=== PATIENT | male | born 1980 | race Caucasian/White ===

== ENCOUNTER → 2024-11-04 | Outpatient (CLI) | payer OTHER, SELFPAY ==
--- OUTSIDE RECORDS SUMMARY | 2024-11-04 06:59 | XMS RPT_ITS | CCD ---
Author Organization [facility] Care Team Providers Care Handyperson Name Role Phone MARKO MEDINA Referring Unavailable MARKO MEDINA Consulting Unavailable NATHEN CHAUDHRY DO Attending Unavailable RIDNATHEN SILVERMAN DO Primary Care Unavailable RIDDLENATHEN DO Admitting Unavailable PROVIDER, UNKNOWN Consulting Unavailable PROVIDER, UNKNOWN Consulting Unavailable PROVIDER, UNKNOWN Consulting Unavailable Marko Medina MD Unavailable Urologist Provider Unavailable Unavailable Cat SANON, Radha Piña Unavailable Crow ASSOCIATE MANAGER [employer]FFILIATE MARKETING, Libby Unavailable Austen SANON, Jason Dwyer Unavailable King CHANCEC, Nathen Mccollum Unavailable Izabella Dent Unavailable Unavailable Tera SCOTT, Michelle Hutson Unavailable Jolene LAN, Radha Torres Unavailable Unavailab shirley Yang LPN, Jovita Max Unavailable Unavailab shirley Pressley PA-C, Cullen Piña Unavailable Ke SANON, Dr. Blunt Unavailable [phone] Allergies Allergy Classification Reported Allergen(s) Allergy Type Date of Onset Reaction(s) Facility (1 source) Sulfonamides (Antibiotic) Drug allergy (disorder) [facility] Repository (4 sources) Sulfonamides (Antibiotic) [facility] Medications Completed/Discontinued Medications Medication Drug Class(es) Dates Sig (Normalized) Sig (Original) acetaminophen 325 mg / oxyCODONE hydrochloride 5 mg oral tablet (4 sources) Opioid Agonist Start: 12-17-2012 End: 09-10-2013 take 2 tablets by mouth every four to six hours as needed for pain PERCOCET, 5-325MG (Oral Tablet) ; 2 (two) Tablet q4-6hrs, prn severe pain for 0 days Quantity: 20 {Tablet} Refills: 0 Ordered: 10-Sep-2013 Start: 17-Dec-2012 End: 10-Sep-2013 Status: Inactive amoxicillin 500 mg oral capsule (4 sources) Penicillin-class Antibacterial Start: 11-15-2011 End: 07-30-2012 take 1 capsule by mouth three times daily AMOXICILLIN, 500MG (Oral Capsule) ; 1 Capsule tid for 0 days Quantity: 30 {Capsule} Refills: 0 Ordered: 30-Jul-2012 RIKY Maria Start: 15-Nov-2011 End: 30-Jul-2012 Status: Inactive amoxicillin 875 mg / clavulanate 125 mg oral tablet (4 sources) Penicillin-class Antibacterial Start: 10-11-2016 End: 10-21-2016 take 1 tablet by mouth twice daily at mealtime Augmentin 875-125 MG Oral Tablet ; 1 Tab two times daily for 10 days Quantity: 20 {Tablet} Refills: 0 Ordered: 11-Oct-2016 BUFFY Curry Start: 11-Oct-2016 End: 21-Oct-2016 Status: Inactive Comments: Take with food Comment on above: Take with food azithromycin 250 mg oral tablet (4 sources) Macrolide Antimicrobial Start: 06-21-2014 End: 09-03-2014 ZITHROMAX Z-JANNA, 250MG (Oral Tablet) ; 2 (two) Tablet today and then 1 tablet daily x 4 days for 0 days Quantity: 1 {Package} Refills: 0 Ordered: 03-Sep-2014 Start: 21-Jun-2014 End: 03-Sep-2014 Status: Inactive cephalexin 500 mg oral capsule (4 sources) Cephalosporin Antibacterial Start: 08-20-2016 End: 10-11-2016 take 1 capsule by mouth three times daily Cephalexin 500 MG Oral Capsule ; 1 (one) Capsule tid for 0 days Quantity: 30 {Capsule} Refills: 0 Ordered: 11-Oct-2016 PRECIOUS Chapin Start: 20-Aug-2016 End: 11-Oct-2016 Status: Inactive ciprofloxacin 500 mg oral tablet (8 sources) Quinolone Antimicrobial Start: 06-14-2015 End: 03-17-2016 take 1 tablet by mouth twice daily Ciprofloxacin HCl 500 MG Oral Tablet ; 1 (one) Tablet bid for 0 days Quantity: 20 {Tablet} Refills: 0 Ordered: 17-Mar-2016 Start: 14-Jun-2015 End: 17-Mar-2016 Status: Inactive Start: 08-08-2012 End: 08-18-2012 take 1 tablet by mouth twice daily CIPRO, 500MG (Oral Tablet) ; 1 Tablet two times daily for 10 days Quantity: 20 {Tablet} Refills: 0 Ordered: 26-Aug-2012 MD Marko Medina Start: 08-Aug-2012 End: 18-Aug-2012 Status: Inactive ketorolac tromethamine 10 mg oral tablet (4 sources) Nonsteroidal Anti-inflammatory Drug, Cyclooxygenase Inhibitor Start: 12-19-2012 End: 09-10-2013 take 1 tablet by mouth five times daily as needed KETOROLAC TROMETHAMINE, 10MG (Oral Tablet) ; 1 Tablet four times daily as needed for pain for 0 days Quantity: 8 {tablet(s)} Refills: 0 Ordered: 10-Sep-2013 Start: 19-Dec-2012 End: 10-Sep-2013 Status: Inactive Comments: Medication taken as needed. max duration of this med is 5 days (pt had previous rx for 3 days) Comment on above: Medication taken as needed. max duration of this med is 5 days (pt had previous rx for 3 days) sulfamethoxazole 800 mg / trimethoprim 160 mg oral tablet (4 sources) Dihydrofolate Reductase Inhibitor Antibacterial, Sulfonamide Antimicrobial Start: 07-30-2012 End: 08-08-2012 take 1 tablet by mouth twice daily SULFAMETHOXAZOLE- TMP DS, 800-160MG (Oral Tablet) ; 1 Tablet bid for 0 days Quantity: 30 {Tablet} Refills: 0 Ordered: 08-Aug-2012 RIKY Fernández Start: 30-Jul-2012 End: 08-Aug-2012 Status: Inactive Problems Active Problems Problem Classification Problem Date Documented Da te Episodic/Chronic Abdominal hernia (4 sources) Inguinal hernia, without mention of obstruction or gangrene, unilateral or unspecified (not specified as recurrent) 07-30-2012 Episodic Abdominal pain (12 sources) Abdominal pain, unspecified site; Translations: [Abdominal pain] 12-29-2012 Episodic Calculus of urinary tract (8 sources) Calculus of kidney; Translations: [Renal colic] 12-19-2012 Episodic Complications of surgical procedures or medical care (4 sources) Not up to date with immunizations; Translations: [Personal history of underimmunization status] 06-17-2020 Episodic Conditions associated with dizziness or vertigo (4 sources) Constant vertigo; Translations: [Dizziness and giddiness] 09-10-2013 Episodic Genitourinary symptoms and ill-defined conditions (4 sources) Blood in urine; Translations: [Hematuria, unspecified] 12-17-2012 Episodic Inflammatory conditions of male genital organs (4 sources) Acute prostatitis 07-30-2012 Episodic Open wounds of extremities (4 sources) Open wound of foot except toe(s) alone, without mention of complication 11-23-2010 Episodic Other lower respiratory disease (8 sources) Cough; Translations: [Cough] 06-21-2014 Episodic Other nervous system disorders (5 sources) Paresthesia; Translations: [Paresthesia of skin] 10-02-2024 Episodic Other screening for suspected conditions (not mental disorders or infectious disease) (8 sources) Screening status; Translations: [Encounter for screening for diabetes mellitus] 07-30-2012 Episodic Other upper respiratory infections (4 sources) Sinusitis; Translations: [Chronic sinusitis, unspecified] 06-14-2015 Chronic Other upper respiratory infections (12 sources) Acute pharyngitis; Translations: [Acute pharyngitis, unspecified] 08-20-2016 Episodic Otitis media and related conditions (12 sources) Otitis media of right ear; Translations: [Otitis media, unspecified, right ear] 10-11-2016 Episodic Residual codes; unclassified (4 sources) Non-smoker; Translations: [Other specified health status] 06-17-2020 Episodic Superficial injury; contusion (4 sources) Contusion of rib; Translations: [Contusion of left front wall of thorax, initial encounter] 06-17-2020 Episodic Viral infection (4 sources) Unspecified viral infection 06-05-2011 Episodic Past or Other Problems Problem Classification Problem Date Documented Da te Episodic/Chronic Unclassified (4 sources) side pain - Kicked by a cow on 06/06. He was thrown into a gutter and has pain in his left flank/torso. He went to a chriopractor last weekend and was told that it is not rib pain. No imaging done. He continues to have pain and cannot rest. He denies abdominal distention or hematuria. 06-17-2020 Unclassified (4 sources) Cold Symptoms - Symptoms include runny nose, purulent discharge (yellow/green), sore throat (post nasal drainage), hoarseness, productive cough, chills and headache, but do not include nasal congestion, fever or facial pain. The onset was sudden 4 day(s) ago. The symptoms occur constantly. The patient describes this as moderate in severity and worsening. Current treatment includes NSAIDs (last taken at 6:30am this morning), home remedies (vitamin C, echinacea, elderberry juice/extract) and Cold-ez. Risk factors do not include smoking. The patient has been exposed to an individual with an upper respiratory infection (special events driver took patient on a trip last week and was sick this week also). Patient denies history of seasonal allergies, asthma or tonsillectomy. Note for Upper respiratory infection: Reviewed by K. 10-11-2016 Unclassified (4 sources) Cold Symptoms - Symptoms include sore throat, scratchy throat, dry cough, fever (102 at home), chills and headache, but do not include nasal congestion or runny nose. The onset was gradual 2 week(s) ago. The symptoms occur constantly. The patient describes this as moderate in severity and worsening. Current treatment includes acetaminophen. Risk factors do not include child in daycare or smoking. The patient has not been exposed to an individual with a cough, an individual with an upper respiratory infection, an individual with similar symptoms or an individual with strep. Note for Upper respiratory infection: Reviewed by K. 08-20-2016 Unclassified (4 sources) Cold Symptoms - Symptoms include nasal congestion, runny nose, ear pain, sore throat, scratchy throat, dry cough and productive cough, but do not include fever. The onset was gradual 2 week(s) ago. The symptoms occur constantly. The patient describes this as moderate in severity and worsening. Current treatment includes an oral decongestant. Risk factors do not include child in daycare or smoking. The patient has been exposed to an individual with similar symptoms. 03-20-2016 Unclassified (4 sources) Cold Symptoms - Symptoms include runny nose, ear fullness, scratchy throat, dry cough, fever, chills, general malaise and headache, but do not include ear pain. The onset was sudden 6 day(s) ago. The symptoms occur constantly. The patient describes this as moderate in severity and worsening. Current treatment includes acetaminophen and NSAIDs. Risk factors do not include smoking. The patient has been exposed to an individual with similar symptoms (child). 06-14-2015 Unclassified (4 sources) Cold Symptoms - Symptoms include nasal congestion, runny nose (drainage is clear), sore throat, productive cough (only in the morning) and headache, but do not include ear pain or general malaise. The onset was gradual 3 week(s) ago. The symptoms occur constantly. The patient describes this as moderate in severity and unchanged. Current treatment includes non-prescription cold medication (mucinex and nyquil). The patient has been exposed to an individual with similar symptoms. Patient denies history of seasonal allergies, recurrent sinusitis, recurrent strep pharyngitis, asthma, tonsillectomy or recurrent ear infections. Note for Upper respiratory infection: Has had a little diarrhea x weeks. 06-04-2014 Unclassified (4 sources) Follow up consultation - The patient is here to follow-up after hospitalization on : (09/02/13). Note for Consultation follow-up: he states he continues to feel off balance followed by a h/a. He denies chest pain, palpitations, or shortness of breath. CT of brain was negative. He was being treated with meclizine , quit taking this week. 09-10-2013 Unclassified (4 sources) [ADDITIONAL REASON] Transition into care - The patient is transitioning into care from a hospital . 09-10-2013 Unclassified (4 sources) Abdominal pain - The onset of the abdominal pain has been sudden and has been occurring in an intermittent pattern for 6 hours. The pain is described as a moderate colicky pain. The pain is located in the left lower quadrant. The symptoms have been associated with dysuria and hematuria. Note for Abdominal pain: -Pain came suddenly in thenight and woke him up. At times he was rolling on the floor due to pain. It subsides at times. Spoke with RA cinder block mason who recommended ov. 12-17-2012 Unclassified (4 sources) Abdominal pain - The onset of the abdominal pain has been sudden and has been occurring in an intermittent pattern for 2 days. The pain is described as a moderate dull ache. The pain is located in the epigastrium. Note for Abdominal pain: -Recently finished cipro for prostate infection and feels that improved. He has not had any abdominal surgeries. His chiropractor suggested ov. 08-27-2012 Unclassified (4 sources) burning after urination - Intermittent pain and burning after urination. No painful urination and no urinary urgency. He does not notice any external irritation or discharge. He says he knows he does not drink enough water and does consume alot of soda. He wonders if he could be diabetic--he eats alot of sweets and gets hypoglycemic. He reports he had strep throat in July which he cured himself with tea tree oil. 07-30-2012 Unclassified (4 sources) Sore Throat - The onset of the sore throat has been acute and has been occurring for 3 days. The course has been worsening. The sore throat is described as severe. Symptoms include sore throat, fever, headache and ear pain (r), but do not include runny nose, nasal congestion or cough. Relieving factors include NSAIDs. 11-15-2011 Unclassified (4 sources) Cold Symptoms - Symptoms include runny nose, sore throat, dry cough (slight) and fever (low grade yesterday.). The onset was sudden 2 day(s) ago. The patient describes this as mild and improving. Note for Cold Symptoms: Had diarrhea and vomiting. Is doing better today. Concern today is sore throat. reviewed by [facility] 06-05-2011 Unclassified (4 sources) Follow up consultation - The patient is here to follow-up after Emergency Room/Urgent Care on : (11-11-10 stepped on a nina nail on 11-09-10, went to [facility] on 11[facility]11. received rocephin and augmentin 875. redness seems to have improved. pt still painful and limping. inquires if he can return to work. ). 11-23-2010 Unclassified (2 sources) Numbness - The symptoms first began 2 week(s) ago. The onset of the numbness has been gradual. The numbness is improving (initially the numbness was about the whole arm, but currently having numbness of the tips of fingers). The patient describes the numbness as persistent (the numbness is better at the end of the day, numbness is worse when he wakes up in the morning along with sitting down or laying down). The numbess affects the right upper extremity and left upper extremity. Associated features include lightheadedness (has occasionally before noon felt lightheaded, if he eats food and drinks water he will feel better. Patient states that he has episodes of vertigo in the past), but there is no associated chest pain, dizziness or shortness of breath. There are no precipitating factors. Note for Numbness: About 3-4 months ago, he had stinging pain down the lateral side of both legs down to almost his ankle. He went to Chiropractor and started taking prostate supplement. The leg pain did resolve. About 2 1/2 week ago, all of a sudden he had pain again down the lateral side of both legs, along with numbness of the lower legs. He is currently having soreness of the legs and the numbness feeling has resolved. Did notice with the second episode that the pain was worse with laying down or sitting down. The leg pain and numbness improves with standing and be up on his feet.About 1 1/2 weeks ago, he broke out with hives all over his body. He took an Epson Salt bath. The Hives lasted for about 1 1/2 days. 10-02-2024 Results Test Name Value Interpretation Reference Range Facility CBC (INCLUDES DIFF/PLT)on Basophils (Bld) [#/Vol] 0.061 10*3/uL Normal 0-200 [facility] Comment on above: Performed By: #### 5 616, 38762, 6399, 927, 5363 #### [facility] [address] Integrated Marketing Intern: Rubén Longoria MD Basophils/100 WBC (Bld) 1.2 % Normal [facility] Comment on above: Performed By: #### 5 616, 73190, 6399, 927, 5363 #### [facility] [address], [address] [place], [place] [id number] Integrated Marketing Intern: Rubén Longoria MD Eosinophils (Bld) [#/Vol] 0.061 10*3/uL Normal 15-500 [facility] Comment on above: Performed By: #### 5 616, 70700, 6399, 927, 5363 #### [facility] [address], [address] [place] [address] Integrated Marketing Intern: Rubén Longoria MD Eosinophils/100 WBC (Bld) 1.2 % Normal [facility] Comment on above: Performed By: #### 5 616, 35053, 6399, 927, 5363 #### [facility] of [place] [address] Integrated Marketing Intern: Rubén Longoria MD Erythrocyte distribution width (RBC) [Ratio] 12.3 % Normal 11.0-15.0 [facility] Comment on above: Performed By: #### 5 616, 95239, 6399, 927, 5363 #### [facility] [place] [address] Integrated Marketing Intern: Rubén Longoria MD Hematocrit (Bld) [Volume fraction] 38.5 % Normal 38.5-50.0 [facility] Comment on above: Performed By: #### 5 616, 57790, 6398, 927, 5363 #### [facility] [place] [address] Integrated Marketing Intern: Rubén Longoria MD Hemoglobin (Bld) [Mass/Vol] 13.2 g/dL Normal 13.2-17.1 [facility] Comment on above: Performed By: #### 5 616, 85779, 63, 927, 5363 #### [facility] [place] [address] Integrated Marketing Intern: Rubén Longoria MD Lymphocytes (Bld) [#/Vol] 1.683 10*3/uL Normal 850-3900 [facility] Comment on above: Performed By: #### 5 616, 07716, 6399, 927, 5363 #### [facility] [place] [address] Integrated Marketing Intern: Rubén Longoria MD Lymphocytes/100 WBC (Bld) 33.0 % Normal [facility] Comment on above: Performed By: #### 5 616, 23069, 6399, 927, 5363 #### [facility] [place] [address] Integrated Marketing Intern: Rubén Longoria MD MCH (RBC) [Entitic mass] 31.2 pg Normal 27.0-33.0 [facility] Comment on above: Performed By: #### 5 616, 43976, 63, 92, 5363 #### [facility] [place] [address] Integrated Marketing Intern: Rubén Longoria MD MCHC (RBC) [Mass/Vol] 34.3 g/dL Normal 32.0-36.[address] [facility] Comment on above: Result Comment: For adults, a slight decrease in the calculated MCHC value (in the range of 30 to 32 g/dL) is most likely not clinically significant; however, it should be interpreted with caution in correlation with other red cell parameters and the patient's clinical condition. Performed By: #### 5 616, 78640, 6398, , 5363 #### [facility] [place] [address] Integrated Marketing Intern: Rubén Longoria MD MCV (RBC) [Entitic vol] 91.0 fL Normal 80.0-100.0 [facility] Comment on above: Performed By: #### 5 616, 70922, 6398, 92, 5363 #### [facility] [place] [address] Integrated Marketing Intern: Rubén Longoria MD Monocytes (Bld) [#/Vol] 0.439 10*3/uL Normal 200-950 [facility] Comment on above: Performed By: #### 5 616, 59080, 63, 92, 5363 #### [facility] [place] [address] Integrated Marketing Intern: Rubén Longoria MD Monocytes/100 WBC (Bld) 8.6 % Normal [facility] Comment on above: Performed By: #### 5 616, 49114, 6398, 927, 5363 #### [facility] of [address] [place] [address] Integrated Marketing Intern: Rubén Longoria MD Neutrophils (Bld) [#/Vol] 2.856 10*3/uL Normal 5784-0606 [facility] Comment on above: Performed By: #### 5 616, 10990, 6399, 927, 5363 #### [facility] of [address], [address] [place] [address] Integrated Marketing Intern: Rubén Longoria MD Neutrophils/100 WBC (Bld) 56 % Normal [facility] Comment on above: Performed By: #### 5 616, 85513, 6399, 927, 5363 #### [facility] [place] [address] Integrated Marketing Intern: Rubén Longoria MD Platelet mean volume (Bld) [Entitic vol] 10.1 fL Normal 7.5-12.5 [facility] Comment on above: Performed By: #### 5 616, 20993, 6399, 927, 5363 #### [facility] [place] [address] Integrated Marketing Intern: Rubén Longoria MD Platelets (Bld) [#/Vol] 319 10*3/uL Normal 140-400 [facility] Comment on above: Performed By: #### 5 616, 99951, 6399, 927, 5363 #### [facility] [place] [address] Integrated Marketing Intern: Rubén Longoria MD RBC (Bld) [#/Vol] 4.23 10*6/uL Normal 4.20-5.80 [facility] Comment on above: Performed By: #### 5 616, 58865, 6399, 927, 5363 #### [facility] [place] [address] Integrated Marketing Intern: Rubén Longoria MD WBC (Bld) [#/Vol] 5.1 10*3/uL Normal 3.8-10.8 [facility] Comment on above: Performed By: #### 5 616, 11762, 6399, 927, 5363 #### [facility] [place] [address] Integrated Marketing Intern: Rubén Longoria MD [facility] 10-03-2024 Albumin [Mass/Vol] 4.8 g/dL Normal 3.6-5.1 [facility] Comment on above: Performed By: #### 5 616, 86649, 6399, 927, 5363 #### [facility] [place] [address] Integrated Marketing Intern: Rubné Longoria MD Albumin/Globulin [Mass ratio] 1.7 {ratio} Normal 1.0-2.5 [facility] Comment on above: Performed By: #### 5 616, 65175, 6399, 927, 5363 #### [facility] [place] [address] Integrated Marketing Intern: Rubén Longoria MD ALP [Catalytic activity/Vol] 73 U/L Normal 36-130 [facility] Comment on above: Performed By: #### 5 616, 06025, 6399, 927, 5363 #### [facility] [place] [address] Integrated Marketing Intern: Rubén Longoria MD ALT [Catalytic activity/Vol] 34 U/L Normal 9-46 [facility] Comment on above: Performed By: #### 5 616, 15503, 6399, 927, 5363 #### [facility] [place] [address] Integrated Marketing Intern: Rubén Longoria MD AST [Catalytic activity/Vol] 32 U/L Normal 10-40 [facility] Comment on above: Performed By: #### 5 616, 94355, 6399, 927, 5363 #### [facility] [place] [address] Integrated Marketing Intern: Rubén Longoria MD Bilirubin [Mass/Vol] 1.1 mg/dL Normal 0.2-1.2 [facility] Comment on above: Performed By: #### 5 616, 85304, 6399, 927, 5363 #### [facility] of [address], [address] [place] [address] Integrated Marketing Intern: Rubén Longoria MD BUN/CREATININE RATIO SEE NOTE: Normal 6-22 [facility] Comment on above: Result Comment: Not Reported: BUN and Creatinine are within reference range. Performed By: #### 5 616, 36076, 6399, 927, 5363 #### [facility] of [address], [address] [place] [address] Integrated Marketing Intern: Rubén Longoria MD Calcium [Mass/Vol] 9.2 mg/dL Normal 8.6-10.3 [facility] Comment on above: Performed By: #### 5 616, 26648, 63, 927, 5363 #### [facility] of [address], [address] [place] [address] Integrated Marketing Intern: Rubén Longoria MD Chloride [Moles/Vol] 105 mmol/L Normal 98-110 [facility] Comment on above: Performed By: #### 5 616, 16726, 63, 927, 5363 #### [facility] [place] [address] Integrated Marketing Intern: Rubén Longoria MD CO2 [Moles/Vol] 25 mmol/L Normal 20-32 [facility] Comment on above: Performed By: #### 5 616, 99465, 6399, 927, 5363 #### [facility] [place] [address] Integrated Marketing Intern: Rubén Longoria MD Creatinine [Mass/Vol] 0.80 mg/dL Normal 0.60-1.[address] [facility] Comment on above: Performed By: #### 5 616, 41161, 6399, 927, 5363 #### [facility] of [address], [address] [place] [address] Integrated Marketing Intern: Rubén Longoria MD GFR/1.73 sq M.predicted among non-blacks MDRD (S/P/Bld) [Vol rate/Area] 113 mL/min/{1.73_m2} Normal > OR = 60 [facility] Comment on above: Performed By: #### 5 616, 64785, 63, 927, 5363 #### [facility] [place] [address] Integrated Marketing Intern: Rubén Longoria MD Globulin (S) [Mass/Vol] 2.8 g/dL Normal 1.9-3.7 [facility] Comment on above: Performed By: #### 5 616, 23696, 6398, 927, 5363 #### [facility] [place] [address] Integrated Marketing Intern: Rubén Longoria MD Glucose [Mass/Vol] 92 mg/dL Normal 65-99 [facility] Comment on above: Result Comment: Fasting reference interval Performed By: #### 5 616, 55186, 6398, 927, 5363 #### [facility] [place] [address] Integrated Marketing Intern: Rubén Longoria MD Potassium [Moles/Vol] 4.1 mmol/L Normal 3.5-5.3 [facility] Comment on above: Performed By: #### 5 616, 87306, 63, 927, 5363 #### [facility] [place] [address] Integrated Marketing Intern: Rubén Longoria MD Protein [Mass/Vol] 7.6 g/dL Normal 6.1-8.1 [facility] Comment on above: Performed By: #### 5 616, 34518, 6399, 927, 5363 #### [facility] [place] [address] Integrated Marketing Intern: Rubén Longoria MD Sodium [Moles/Vol] 140 mmol/L Normal 135-146 [facility] Comment on above: Performed By: #### 5 616, 52169, 6399, 927, 5363 #### [facility] [place] [address] Integrated Marketing Intern: Rubén Longoria MD Urea nitrogen [Mass/Vol] 19 mg/dL Normal 7-25 [facility] Comment on above: Performed By: #### 5 616, 79760, 63, 927, 5363 #### [facility] [place] [address] Integrated Marketing Intern: Rubén Longoria MD FOLATE, SERUMon 10-03-2024 Folate [Mass/Vol] 11.7 ng/mL Normal [facility] Comment on above: Result Comment: Refe rence Range Low: <3.4 Borderline: 3.4-5.4 Normal: >5.4 Performed By: #### 5 616, 39694, 63, 927, 5363 #### [facility] [place] [address] Integrated Marketing Intern: Rubén Longoria MD IRON, TIBC AND FERRITIN PANE [facility] 10-03-2024 % SATURATION 51 % (calc) High 20-48 [facility] Comment on above: Performed By: #### 5 616, 03874, 6398, 927, 5363 #### [facility] [place] [address] Integrated Marketing Intern: Rubén Longoria MD Ferritin [Mass/Vol] 216 ng/mL Normal 38-380 [facility] Comment on above: Performed By: #### 5 616, 42292, 63, 927, 5363 #### [facility] [place] [address] Integrated Marketing Intern: Rubén oLngoria MD IRON BINDING CAPACITY 290 mcg/dL (calc) Normal 250-425 [facility] Comment on above: Performed By: #### 5 616, 03246, 63, 927, 5363 #### [facility] [place] [address] Integrated Marketing Intern: Rubén Longoria MD IRON, TOTAL 147 mcg/dL Normal 50-180 [facility] Comment on above: Performed By: #### 5 616, 28867, 6399, 927, 5363 #### [facility] [place] [address] Integrated Marketing Intern: Rubén Longoria MD PSA, TOTALon 10-03-2024 PSA, TOTAL 0.57 ng/mL Normal < OR = 4.00 [facility] Comment on above: Result Comment: The total PSA value from this assay system is standardized against the WHO standard. The test result will be approximately 20% lower when compared to the equimolar-standardized total PSA (Stacy Reginald). Comparison of serial PSA results should be interpreted with this fact in mind. This test was performed using the Siemens chemiluminescent method. Values obtained from different assay methods cannot be used interchangeably. PSA levels, regardless of value, should not be interpreted as absolute evidence of the presence or absence of disease. Performed By: #### 5 616, 94426, 6399, 927, 5363 #### [facility] [place] [address] Integrated Marketing Intern: Rubén Longoria MD VITAMIN B12on 10-03-2024 Cobalamin (Vitamin B12) [Mass/Vol] 512 pg/mL Normal 200-1100 [facility] Comment on above: Performed By: #### 5 616, 76474, 6399, 927, 5363 #### [facility] [place] [address] Integrated Marketing Intern: Rubén Longoria MD Laboratory - Chemistry and C hemistry - challengeon 10-02-2024 Albumin [Mass/Vol] 4.8 g/dL Normal 3.6 - 5.1 g/dL [facility], [facility].; [facility], [facility]. Albumin/Globulin [Mass ratio] 1.7 {ratio} Normal 1.0 - 2.5 [facility], [facility].; [facility] ALP [Catalytic activity/Vol] 73 U/L Normal 36 - 130 U/L [facility], [facility].; [facility], [facility]. ALT [Catalytic activity/Vol] 34 U/L Normal 9 - 46 U/L [facility], [facility].; [facility], [facility]. AST [Catalytic activity/Vol] 32 U/L Normal 10 - 40 U/L [facility]; [facility] Bilirubin [Mass/Vol] 1.1 mg/dL Normal 0.2 - 1 .2 mg/dL [facility]; [facility], [facility] Calcium [Mass/Vol] 9.2 mg/dL Normal 8.6 - 10. 3 mg/dL [facility]; [facility], [facility] Chloride [Moles/Vol] 105 mmol/L Normal 98 - 11 0 mmol/L [facility]; [facility], [facility] CO2 [Moles/Vol] 25 mmol/L Normal 20 - 32 mmol/L [facility]; [facility] Cobalamin (Vitamin B12) [Mass/Vol] 512 pg/mL Normal 200 - 1100 pg/mL [facility]; [facility] Creatinine [Mass/Vol] 0.80 mg/dL Normal 0.60 - 1.29 mg/dL [facility]; [facility], [facility] Ferritin [Mass/Vol] 216 ng/mL Normal 38 - 380 ng/mL [facility]; [facility] Folate [Mass/Vol] 11.7 ng/mL Normal [facility]; [facility], [facility] GFR/1.73 sq M.predicted among non-blacks MDRD (S/P/Bld) [Vol rate/Area] 113 mL/min/{1.73_m2} Normal [facility].; [facility], [facility] Glucose [Mass/Vol] 92 mg/dL Normal 65 - 99 mg/dL [facility].; [facility], [facility] Potassium [Moles/Vol] 4.1 mmol/L Normal 3.5 - 5.3 mmol/L [facility].; [facility], [facility] Protein [Mass/Vol] 7.6 g/dL Normal 6.1 - 8.1 g/dL [facility]; [facility], [facility] Sodium [Moles/Vol] 140 mmol/L Normal 135 - 146 mmol/L [facility].; [facility] Urea nitrogen [Mass/Vol] 19 mg/dL Normal 7 - 25 mg/dL [facility].; [facility], [facility] Laboratory - Hematology and Cell countson 10-02-2024 Basophils (Bld) [#/Vol] 0.061 10*3/uL Normal 0 - 200 {cells/uL} [facility].; [facility] Basophils/100 WBC (Bld) 1.2 % Normal [facility]; [facility], [facility] Eosinophils (Bld) [#/Vol] 0.061 10*3/uL Normal 15 - 500 {cells/uL} [facility].; [facility], [facility] Eosinophils/100 WBC (Bld) 1.2 % Normal [facility]; [email or web address], [facility] Erythrocyte distribution width (RBC) [Ratio] 12.3 % Normal 11.0 - 15.0 % [facility].; [email or web address] Hematocrit (Bld) [Volume fraction] 38.5 % Normal 38.5 - 50.0 % [facility]; [facility], [facility] Hemoglobin (Bld) [Mass/Vol] 13.2 g/dL Normal 13.2 - 17.1 g/dL [facility]; [facility], [facility] Lymphocytes (Bld) [#/Vol] 1.683 10*3/uL Normal 850 - 3900 {cells/uL} [facility] Lymphocytes/100 WBC (Bld) 33.0 % Normal [facility]; [email or web address] MCH (RBC) [Entitic mass] 31.2 pg Normal 27.0 - 33.0 pg [facility].; [facility], [facility]. MCHC (RBC) [Mass/Vol] 34.3 g/dL Normal 32.0 - 36.0 g/dL [facility], [facility].; [email or web address], [facility] MCV (RBC) [Entitic vol] 91.0 fL Normal 80.0 - 100.0 fL [facility].; [facility], [facility]. Monocytes (Bld) [#/Vol] 0.439 10*3/uL Normal 200 - 950 {cells/uL} [facility].; [facility], [facility]. Monocytes/100 WBC (Bld) 8.6 % Normal [facility], [facility].; [facility], [facility]. Neutrophils (Bld) [#/Vol] 2.856 10*3/uL Normal 1500 - 7800 {cells/uL} [facility].; [email or web address], [facility]. Neutrophils/100 WBC (Bld) 56 % Normal [facility].; [facility], [facility]. Platelet mean volume (Bld) [Entitic vol] 10.1 fL Normal 7.5 - 12.5 fL [facility], [facility].; [email or web address], [facility]. Platelets (Bld) [#/Vol] 319 10*3/uL Normal 140 - 400 [facility].; [facility], [facility]. RBC (Bld) [#/Vol] 4.23 10*6/uL Normal 4.20 - 5.8 0 {Million/uL} [facility].; [facility], [facility]. WBC (Bld) [#/Vol] 5.1 10*3/uL Normal 3.8 - 10.8 [facility].; [email or web address], [facility]. No Panel Informationon 10-02 % SATURATION 51 {%_(calc)} Abnormal 20 - 48 {%_(calc)} [facility].; [facility], [facility]. BUN/CREATININE RATIO SEE NOTE: Normal 6 - 22 [facility].; [email or web address], [facility]. GLOBULIN 2.8 Normal 1.9 - 3.7 [facility].; [email or web address], [facility]. IRON BINDING CAPACITY 290 Normal 250 - 425 [facility].; [facility] IRON, TOTAL 147 ug/dL Normal 50 - 180 ug/dL [facility], [facility].; [facility], [facility] PSA, TOTAL 0.57 ng/mL Normal [facility].; [facility] CBC + DIFFon 11-19-2022 Baso # 0.00 x10EE3/UL Normal 0.00 - 0.10 [facility] Comment on above: Performed By: #### 2 97616 #### [facility],[address] [place] [address] Basophils/100 WBC (Bld) 0.2 % Normal 0.0 - 2.0 [facility] Comment on above: Performed By: #### 2 10130 #### [facility],[address] [place] [address] CBC + DIFF Normal [facility] Comment on above: Result Comment: CBC- COMPLETE BLOOD COUNT Performed By: #### 2 83917 #### [facility],[address] [place] [address] EO # 0.00 x10EE3/UL Normal 0.00 - 0.50 [facility] Comment on above: Performed By: #### 2 03537 #### [facility],[address] [place], [place] [address] Eosinophils/100 WBC (Bld) 0.1 % Normal 0.0 - 7.0 [facility] Comment on above: Performed By: #### 2 13166 #### [facility],[address] [place] [address] Erythrocyte distribution width (RBC) [Ratio] 13.3 % Normal 12.0 - 15.6 [facility] Comment on above: Performed By: #### 2 74084 #### [facility],[address] [place] [address] Hematocrit (Bld) [Volume fraction] 45.6 % Normal 40.0 - 52.0 [facility] Comment on above: Performed By: #### 2 27934 #### [facility],[address] [place], [place] [address] Hemoglobin (Bld) [Mass/Vol] 15.1 g/dL Normal 13.0 - 17.5 [facility] Comment on above: Performed By: #### 2 43987 #### [facility],[address] [place] [address] Lymph # 1.10 x10EE3/UL Normal 0.80 - 2.80 [facility] Comment on above: Performed By: #### 2 15471 #### [facility],[address] [place] [address] Lymphocytes/100 WBC (Bld) 8.7 % Low 20.0 - 45.0 [facility] Comment on above: Performed By: #### 2 57285 #### [facility],[address] [place], [place] [address] MANUAL DIFF N/A Normal [facility] Comment on above: Performed By: #### 2 78820 #### [facility],[address] [place] [address] MCH (RBC) [Entitic mass] 30 pg Normal 27 - 33 [facility] Comment on above: Performed By: #### 2 00226 #### [facility],[address] [place] [address] MCHC 33 X10 3 Normal 32 - 36 [facility] Comment on above: Performed By: #### 2 41888 #### [facility],[address] [place] [address]55[address] MCV (RBC) [Entitic vol] 91 fL Normal 81 - 98 [facility] Comment on above: Performed By: #### 2 05532 #### [facility],[address] [place] [address] [place] # 0.70 x10EE3/UL Normal 0.20 - 1.00 [facility] Comment on above: Performed By: #### 2 47996 #### [facility],[address] [place] [address] MONOS % 5.4 % Normal 0.0 - 10.0 [facility] Comment on above: Performed By: #### 2 49081 #### [facility],[address] [place] [address] 45163 Morphology Cale (Bld) [Interp] N/A Normal [facility] Comment on above: Performed By: #### 2 76243 #### [facility],[address] [place] [address] 30905 Neut # 10.60 x10EE3/UL High 1.50 - 7.10 [facility] Comment on above: Performed By: #### 2 98081 #### [facility],[address] [place] [address] 71441 Neutrophils/100 WBC (Bld) 85.6 % High 46.0 - 76.0 [facility] Comment on above: Performed By: #### 2 45257 #### [facility],[address] [place] [address] 78595 PLATELET 256 x10EE3/UL Normal 150 - 450 [facility] Comment on above: Performed By: #### 2 50934 #### [facility],[address] [place] [address] 99537 Platelet mean volume (Bld) [Entitic vol] 8.5 fL Normal 6.4 - 10.5 [facility] Comment on above: Result Comment: AUTO MATED DIFFERENTIAL Performed By: #### 2 14322 #### [facility],[address] [place] [address] 96976 RBC 5.02 x 10EE6/UL Normal 4.50 - 6.00 [facility] Comment on above: Performed By: #### 2 76559 #### [facility],[address] [place] [address]732 WBC 12.4 x 10EE3/UL High 4.5 - 10.8 [facility] Comment on above: Performed By: #### 2 86320 #### [facility],[address] [place] [address] 91481 CMP with eGFRon 11-19-2022 AGE 42 years Normal [facility] Comment on above: Performed By: #### 2 24626 #### [facility],[address] [place] [address]253 Albumin [Mass/Vol] 4.5 g/dL Normal 3.4 - 5.0 [facility] Comment on above: Performed By: #### 2 22002 #### [facility],[address] [place] [address] 36427 Albumin/Globulin [Mass ratio] 1.2 {ratio} Normal 0.9 - 1.6 [facility] Comment on above: Performed By: #### 2 47636 #### [facility],[address] [place] [address] 21622 ALK PHOS 78 U/L Normal 46 - 116 [facility] Comment on above: Performed By: #### 2 03358 #### [facility],[address] [place] [address] 02587 ALT [Catalytic activity/Vol] 34 U/L Normal 16 - 63 [facility] Comment on above: Performed By: #### 2 27324 #### [facility],[address] [place] [address] 45483 Anion gap [Moles/Vol] 14 mmol/L Normal 10 - 20 [facility] Comment on above: Performed By: #### 2 73756 #### [facility],[address] [place] [address] 11989 AST [Catalytic activity/Vol] 19 U/L Normal 15 - 37 [facility] Comment on above: Performed By: #### 2 38746 #### [facility],[address] [place] [address] 36345 B/C RATIO 20 ratio Normal 0 - 30 [facility] Comment on above: Performed By: #### 2 04518 #### [facility],[address] [place] [address] 23395 Bilirubin [Mass/Vol] 0.6 mg/dL Normal 0.2 - 1.0 [facility] Comment on above: Performed By: #### 2 24802 #### [facility],[address] [place] [address] 25703 Calcium [Mass/Vol] 8.7 mg/dL Normal 8.5 - 10.1 [facility] Comment on above: Performed By: #### 2 62160 #### [facility],[address] [place] [address] 08562 Chloride [Moles/Vol] 101 mmol/L Normal 98 - 107 [facility] Comment on above: Performed By: #### 2 61943 #### [facility],[address] [place] [address] 91454 CMP with eGFR Normal [facility] Comment on above: Result Comment: COMP REHENSIVE METABOLIC PANEL Performed By: #### 2 90602 #### [facility],[address] [place] [address] 63358 CO2 [Moles/Vol] 29.0 mmol/L Normal 21.0 - 32.0 [facility] Comment on above: Performed By: #### 2 64914 #### [facility],[address] [place] [address] 42327 Creatinine [Mass/Vol] 1.11 mg/dL Normal 0.70 - 1.30 [facility] Comment on above: Performed By: #### 2 79755 #### [facility],[address] [place] [address] 14743 GFR/1.73 sq M.predicted among non-blacks MDRD (S/P/Bld) [Vol rate/Area] mL/min/{1.73_m2} Normal 60 - 999 [facility] Comment on above: Performed By: #### 2 88244 #### [facility],[address] [place] [address] 97056 Result Comment: ACCO RDING TO THE NATIONAL KIDNEY DISEASE EDUCATION PROGRAM(NKDE), A NORMAL eGFR IS A VALUE GREATER THAN OR EQUAL TO 60 ML/MIN/1.73 SQ METERS. CHRONIC KIDNEY DISEASE: <60mL/MIN/1.73 SQ METERS KIDNEY FAILURE: <15mL/MIN/1.73 SQ METERS THIS TEST SHOULD ONLY BE USED FOR PATIENTS 18 YEARS OF AGE AND OLDER. Globulin (S) [Mass/Vol] 3.9 g/dL High 1.5 - 3.8 [facility] Comment on above: Performed By: #### 2 95165 #### [address] [address] Glucose [Mass/Vol] 119 mg/dL High 74 - 106 [facility] Comment on above: Performed By: #### 2 33795 #### [address] [address] Potassium [Moles/Vol] 3.7 mmol/L Normal 3.5 - 5.1 [facility] Comment on above: Performed By: #### 2 87929 #### [address] [address] Protein [Mass/Vol] 8.4 g/dL High 6.4 - 8.2 [facility] Comment on above: Performed By: #### 2 93475 #### [address] [address] Sodium [Moles/Vol] 140 mmol/L Normal 136 - 145 [facility] Comment on above: Performed By: #### 2 03831 #### [address] [address] Urea nitrogen [Mass/Vol] 22 mg/dL High 7 - 18 [facility] Comment on above: Performed By: #### 2 11919 #### [address] [address] [address] ABDOMEN/PELVIS [facility] 2022 CT ABDOMEN/PELVIS [place] [address] Patient: JERZY JONES Phone#: : 1980 Age: 42 Gender: M Pt. Type: ER Account: [id number] Location: 052 Ordering: DR. NATHEN CHAUDHRY Exam Date: 11/19/2022/4:08 Family Phys: MARKO MEDINA Charge Code: [id number] Physician: [place] Order #: [id number] Dose#: [id number] PROCEDURE: CT ABDOMEN/PELVIS WITH CONTRAST COMPARISON: [facility], CT, ABDOMEN/PELVIS W CON, 09/01/2013, 22:07. INDICATIONS: Abdominal pain. TECHNIQUE: After obtaining the patient's consent, CT images were created with non-ionic intravenous contrast material. All CT scans at this facility use dose modulation, iterative reconstruction, and/or weight based dosing when appropriate to reduce radiation dose to as low as reasonably achievable. IV CONTRAST: Omnipaque 350,80ml TOTAL DOSE: 18.80 CTDIvol(mGy) FINDINGS: LIVER: Normal. No enlargement, atrophy, abnormal density, or significant focal lesion. BILIARY: Calculi are present within the gallbladder. There is no evidence of inflammatory changes. There is no evidence of biliary dilatation. PANCREAS: Normal. No lesion, fluid collection, ductal dilatation, or atrophy. SPLEEN: Normal. No enlargement or focal lesion. KIDNEYS: Tiny right renal hypodense foci are present in too small to characterize with certainty.. No mass, obstruction, or calcification. ADRENALS: Normal. No mass or enlargement. AORTA/VASCULAR: Normal. No aneurysm or dissection. RETROPERITONEUM: Normal. No mass or adenopathy. BOWEL/MESENTERY: Small hiatal hernia. No visible mass, obstruction, or bowel wall thickening. ABDOMINAL WALL: There is a small umbilical hernia with fat. URINARY BLADDER: Normal. No visible focal wall thickening, lesion, or calculus. PELVIC NODES: Normal. No adenopathy. PELVIC ORGANS: Normal. No visible mass. Pelvic organs appropriate for patient age. BONES: There is anterior wedging at T12 unchanged from previous exam. LUNG BASES: Normal. No visible pulmonary or pleural disease. OTHER: Negative. Continued Report - Page 2 of 2 Patient: JERZY JONES Phone#: : 1980 Age: 42 Gender: M Pt. Type: ER Account: [id number] Location: 052 Ordering: DR. NATHEN CHAUDHRY Exam Date: 11/19/2022/4:08 Family Phys: MARKO MEDINA Charge Code: [id number] Physician: [place] Order #: [id number] Dose#: [id number] CONCLUSION: 1. Cholelithiasis. 2. There is no evidence acute abdominal or pelvic abnormality. Dictated by: Clemencia Perry MD on 11/19/2022 at 9:37 Approved by: Clemencia Perry MD on 11/19/2022 at 9:49 Normal [facility] CULTURE BLOOD [LESLIE]on Microscopic examination of blood, culture CULTURE BLOOD [LESLIE] _BLOOD CULTURE_ GO TO [facility] REPORTS AND ATTACHMENTS FOR SCANNED REPORT 11/26/22.1143.DNP.CO MPLETE Normal [facility] Comment on above: Performed By: #### 2 94144 #### [facility],[address] [place] [address] Microscopic examination of blood, culture CULTURE BLOOD [LESLIE] _BLOOD CULTURE_ [facility] FOR SCANNED REPORT 11/26/22.1142.DNP.CO MPLETE Normal [facility] Comment on above: Performed By: #### 2 94145 #### [facility],[address] [place] [address]500 LACTATEon 11-19-2022 Lactate [Moles/Vol] 1.1 mmol/L Normal 0.4 - 2.0 [facility] Comment on above: Performed By: #### 2 24382 #### [facility],[address] [place] [address]654 LIPASEon 11-19-2022 Lipase [Catalytic activity/Vol] 52.0 U/L Low 73.0 - 393 [facility] Comment on above: Performed By: #### 2 33408 #### [facility],[address] [place] [address]35 Laboratory - Hematology and Cell countson 06-17-2020 Basophils (Bld) [#/Vol] 0.02 10*3/uL Normal 0 - 200 {cells/uL} [facility] Basophils/100 WBC (Bld) 0.3 % Normal [facility].; [facility] Eosinophils (Bld) [#/Vol] 0.053 10*3/uL Normal 15 - 500 {cells/uL} [facility].; [facility] Eosinophils/100 WBC (Bld) 0.8 % Normal [facility].; [facility] Erythrocyte distribution width (RBC) [Ratio] 12.4 % Normal 11.0 - 15.0 % [facility].; [facility], [facility] Hematocrit (Bld) [Volume fraction] 45.0 % Normal 38.5 - 50.0 % [facility], [facility].; [facility], [facility] Hemoglobin (Bld) [Mass/Vol] 15.1 g/dL Normal 13.2 - 17.1 g/dL [facility].; [facility] Lymphocytes (Bld) [#/Vol] 1.789 10*3/uL Normal 850 - 3900 {cells/uL} [facility].; [facility] Lymphocytes/100 WBC (Bld) 27.1 % Normal [facility]; [facility], [facility]. MCH (RBC) [Entitic mass] 30.1 pg Normal 27.0 - 33.0 pg [facility].; [facility], [facility]. MCHC (RBC) [Mass/Vol] 33.6 g/dL Normal 32.0 - 36.0 g/dL [facility].; [facility], [facility]. MCV (RBC) [Entitic vol] 89.8 fL Normal 80.0 - 100.0 fL [facility].; [facility], [facility]. Monocytes (Bld) [#/Vol] 0.554 10*3/uL Normal 200 - 950 {cells/uL} [facility] [facility]. Monocytes/100 WBC (Bld) 8.4 % Normal [facility]. Neutrophils (Bld) [#/Vol] 4.184 10*3/uL Normal 1500 - 7800 {cells/uL} [facility].; [facility]. Neutrophils/100 WBC (Bld) 63.4 % Normal [facility].; [facility]. Platelet mean volume (Bld) [Entitic vol] 10.8 fL Normal 7.5 - 12.5 fL [facility].; [place] [email or web address] Platelets (Bld) [#/Vol] 293 10*3/uL Normal 140 - 400 [facility]; [facility]. RBC (Bld) [#/Vol] 5.01 10*6/uL Normal 4.20 - 5.8 0 {Million/uL} [facility].; [facility], [facility]. WBC (Bld) [#/Vol] 6.6 10*3/uL Normal 3.8 - 10.8 [facility].; [place] [employer]. Laboratory - Microbiology an d Antimicrobial susceptibilityon 08-20-2016 S. pyogenes Ag EIA Ql (Throat) Negative Normal [facility]; [facility] Laboratory - Chemistry and C hemistry - challengeon 09-10-2013 Free T3 [Mass/Vol] 3.2 pg/mL Normal 2.3 - 4.2 pg/mL [facility].; [facility]. Free T4 [Mass/Vol] 1.0 ng/dL Normal 0.8 - 1.8 ng/dL [facility].; [email or web address] [email or web address], [facility]. TSH Qn 2.37 m[IU]/L Normal 0.40 - 4.50 {mIU/L} [facility].; [email or web address] [email or web address], [facility]. Laboratory - Chemistry and C hemistry - challengeon 12-17-2012 Bilirubin Ql (U) Negative Normal [facility].; [place] [email or web address], [employer] Ketones Ql (U) Negative Normal [facility].; [place] [employer]. pH (U) 5.5 [pH] Normal [facility] [employer]. Specific gravity (U) [Rel density] 1.010 Normal [facility] [employer]. Laboratory - Hematology and Cell countson 12-17-2012 Hemoglobin Ql (U) large Abnormal [facility] [employer].; [employer]. Laboratory - Specimen inform ationon 12-17-2012 Appearance (U) clear Normal [facility].; [employer]. Color (U) dark Yellow Normal [employer].; [employer]. Laboratory - Urinalysison Glucose Test strip (U) [Mass/Vol] Negative Normal [facility] [employer].; [employer]. Leukocyte esterase Test strip Ql (U) Negative Normal [facility].; [employer], [employer]. Nitrite Ql (U) Negative Normal [facility].; [employer]. Protein Ql (U) Negative Normal [facility].; [employer]. No Panel Informationon 12-17 UA - UROBILINOGEN 0.2 mg/dL Normal [facility] [employer].; [employer]. Laboratory - Chemistry and C hemistry - challengeon 08-27-2012 Bilirubin Ql (U) Negative Normal [facility].; [employer]. Ketones Ql (U) Negative Normal [facility].; [employer]. pH (U) 7.0 [pH] Normal 4.6 - 8.0 [employer].; [employer]. Specific gravity (U) [Rel density] 1.010 Normal 1.001 - 1.025 [employer].; [employer]. Laboratory - Hematology and Cell countson 08-27-2012 Hemoglobin Ql (U) Negative Normal [employer].; [employer]. Laboratory - Specimen inform ationon 08-27-2012 Appearance (U) Clear Normal [facility].; [employer]. Color (U) yellow Normal [employer].; [employer]. Laboratory - Urinalysison Glucose Test strip (U) [Mass/Vol] Negative Normal [facility].; [employer]. Leukocyte esterase Test strip Ql (U) Negative Normal [facility].; [facility], [employer]. Nitrite Ql (U) Negative Normal [facility].; [employer]. Protein Ql (U) Negative Normal [facility].; [employer]. No Panel Informationon 08-27 UA - UROBILINOGEN 0.2 mg/dL Normal [place] [employer].; [employer]. Laboratory - Chemistry and C hemistry - challengeon 07-30-2012 Bilirubin Ql (U) Negative Normal [facility].; [employer]. Glucose Glucometer (BldC) [Moles/Vol] 83 Normal 60 - 120 [facility].; [employer]. Ketones Ql (U) Negative Normal [facility].; [employer]. pH (U) 7.0 [pH] Normal 4.6 - 8.0 [place] [employer].; [employer]. Specific gravity (U) [Rel density] 1.010 Normal 1.001 - 1.025 [facility].; [employer]. Laboratory - Hematology and Cell countson 07-30-2012 Hemoglobin Ql (U) trace, non-hemolyzed Abnormal [facility].; [employer]. Laboratory - Specimen inform ationon 07-30-2012 Appearance (U) clear Normal [facility].; [employer]. Color (U) yellow Normal [place] [employer].; [employer]. Laboratory - Urinalysison Glucose Test strip (U) [Mass/Vol] Negative Normal [place] [employer].; [facility], [employer]. Leukocyte esterase Test strip Ql (U) Negative Normal [facility].; [employer]. Nitrite Ql (U) Negative Normal [facility].; [employer]. Protein Ql (U) Negative Normal [facility]; [facility] No Panel Informationon 07-30 UA - UROBILINOGEN 0.2 mg/dL Normal [facility]; [facility] Laboratory - Microbiology an d Antimicrobial susceptibilityon 11-15-2011 S. pyogenes Ag EIA Ql (Throat) Positive Abnormal [facility]; [facility] Vital Signs Date Time Vital Sign Value Performing Clinician Facility 10-02-2024 08:12-0400 Body height 175.26 cm Arelis Chapin RN [facility].; [facility] 10-02-2024 08:12-0400 Body mass index (BMI) [Ratio] 29.68 kg/m2 Arelis Chapin RN [facility].; [facility] 10-02-2024 08:12-0400 Body surface area Derived from formula 2.07 m2 Arelis Chapin RN [facility].; [place] [email or web address]. 10-02-2024 08:12-0400 Body temperature 98.3 [degF] Arelis Chapin RN [facility].; [place] [email or web address]. Comment on above: Method: Tympanic 10-02-2024 08:12-0400 Body weight 91.17 kg Arelis Chapin RN [facility].; [facility] 10-02-2024 08:12-0400 Diastolic blood pressure 69 mm[Hg] Arelis Chapin RN [facility].; [email or web address]. Comment on above: Patient Position: Sitting; Cuff Location : Left Arm; Cuff Size: Standard 10-02-2024 08:12-0400 Heart rate 70 /min Arelis Chapin RN [facility].; [employer]. Comment on above: Pattern: Regular 10-02-2024 08:12-0400 Systolic blood pressure 113 mm[Hg] Arelis Chapin RN [facility].; [facility]. Comment on above: Patient Position: Sitting; Cuff Location : Left Arm; Cuff Size: Standard 06-17-2020 14:54-0500 Body height 177.8 cm Libby Maria ASSOCIATE MANAGER AFFILIATE MARKETING Work Phone: [facility] [employer].; [employer]. 06-17-2020 14:54-0500 Body mass index (BMI) [Ratio] 28.98 kg/m2 Libby Crow ASSOCIATE MANAGER AFFILIATE MARKETING Work Phone: [employer].; [employer]. 06-17-2020 14:54-0500 Body surface area Derived from formula 2.1 m2 Libby Crow ASSOCIATE MANAGER AFFILIATE MARKETING Work Phone: [employer].; [employer]. 06-17-2020 14:54-0500 Body weight 91.63 kg Libby Crow ASSOCIATE MANAGER AFFILIATE MARKETING Work Phone: [employer].; [employer]. 06-17-2020 14:54-0500 Diastolic blood pressure 87 mm[Hg] Libby Crow ASSOCIATE MANAGER AFFILIATE MARKETING Work Phone: [employer].; [employer]. Comment on above: Patient Position: Sitting; Cuff Location : Left Arm; Cuff Size: Standard 06-17-2020 14:54-0500 Heart rate 102 /min Libby Crow ASSOCIATE MANAGER AFFILIATE MARKETING Work Phone: [employer].; [employer]. Comment on above: Pattern: Regular 06-17-2020 14:54-0500 Systolic blood pressure 122 mm[Hg] Libby Crow ASSOCIATE MANAGER AFFILIATE MARKETING Work Phone: [employer].; [employer]. Comment on above: Patient Position: Sitting; Cuff Location : Left Arm; Cuff Size: Standard 10-11-2016 11:19-0400 Body height 177.8 cm Arelis Chapin RN [employer].; [employer]. 10-11-2016 11:19-0400 Body mass index (BMI) [Ratio] 29.99 kg/m2 Arelis Chapin RN [employer].; [employer]. 10-11-2016 11:19-0400 Body surface area Derived from formula 2.13 m2 Arelis Chapin RN [facility].; [employer]. 10-11-2016 11:19-0400 Body temperature 99.1 [degF] Arelis Chapin RN [employer].; [employer]. Comment on above: Method: Tympanic 10-11-2016 11:19-0400 Body weight 94.8 kg Arelis Chapin RN [employer].; [employer]. 10-11-2016 11:19-0400 Diastolic blood pressure 81 mm[Hg] Arelis Chapin RN [employer].; [employer]. Comment on above: Patient Position: Sitting; Cuff Location : Left Arm; Cuff Size: Large 10-11-2016 11:19-0400 Heart rate 87 /min Arelis Chapin RN [employer].; [employer]. Comment on above: Pattern: Regular 10-11-2016 11:19-0400 Inhaled oxygen concentration 20 % Marko Medina MD Work Phone: [employer].; [employer]. Comment on above: Room air 10-11-2016 11:19-0400 Inhaled oxygen concentration 21 % Arelis Chapin RN [employer].; [employer]. Comment on above: Room air 10-11-2016 11:19-0400 SaO2% (BldA) [Mass fraction] 96 % Arelis Chapin RN [employer].; [employer]. 10-11-2016 11:19-0400 Systolic blood pressure 123 mm[Hg] Arelis Chapin RN [employer].; [employer]. Comment on above: Patient Position: Sitting; Cuff Location : Left Arm; Cuff Size: Large 08-20-2016 07:59-0400 Body height 177.8 cm Marko Medina MD Work Phone: [employer]; [employer] 08-20-2016 07:59-0400 Body mass index (BMI) [Ratio] 29.41 kg/m2 Marko Medina MD Work Phone: [employer]; [employer]. 08-20-2016 07:59-0400 Body surface area Derived from formula 2.11 m2 Marko Medina MD Work Phone: [employer]; [employer]. 08-20-2016 07:59-0400 Body temperature 99.4 [degF] Marko Medina MD Work Phone: [employer].; [employer]. 08-20-2016 07:59-0400 Body weight 92.99 kg Marko Medina MD Work Phone: [employer].; [employer]. 08-20-2016 07:59-0400 Diastolic blood pressure 93 mm[Hg] Marko Medina MD Work Phone: [employer]; [employer]. Comment on above: Patient Position: Sitting; Cuff Location : Left Arm; Cuff Size: Standard 08-20-2016 07:59-0400 Heart rate 105 /min Marko Medina MD Work Phone: [employer]; [employer]. Comment on above: Pattern: Regular 08-20-2016 07:59-0400 Systolic blood pressure 138 mm[Hg] Marko Medina MD Work Phone: [employer]; [employer] Comment on above: Patient Position: Sitting; Cuff Location : Left Arm; Cuff Size: Standard 03-17-2016 09:55-0400 Body height 177.8 cm Marko Medina MD Work Phone: [employer]; [employer]. 03-17-2016 09:55-0400 Body mass index (BMI) [Ratio] 29.84 kg/m2 Marko Medina MD Work Phone: [employer].; [employer]. 03-17-2016 09:55-0400 Body surface area Derived from formula 2.12 m2 Marko Medina MD Work Phone: [employer].; [employer]. 03-17-2016 09:55-0400 Body weight 94.35 kg Marko Medina MD Work Phone: [employer].; [employer]. 03-17-2016 09:55-0400 Diastolic blood pressure 92 mm[Hg] Marko Medina MD Work Phone: [employer]; [employer]. Comment on above: Patient Position: Sitting; Cuff Location : Left Arm; Cuff Size: Standard 03-17-2016 09:55-0400 Heart rate 77 /min Marko Medina MD Work Phone: [employer]; [employer]. Comment on above: Pattern: Regular 03-17-2016 09:55-0400 Systolic blood pressure 143 mm[Hg] Marko Medina MD Work Phone: [employer]; [employer]. Comment on above: Patient Position: Sitting; Cuff Location : Left Arm; Cuff Size: Standard 06-13-2015 13:46-0500 Body height 177.8 cm [employer] Work Phone: [employer]; [employer]. 06-13-2015 13:46-0500 Body mass index (BMI) [Ratio] 29.27 kg/m2 [employer] ASSOCIATE MANAGER AFFILIATE MARKETING Work Phone: [employer]; [employer]. 06-13-2015 13:46-0500 Body surface area Derived from formula 2.11 m2 [employer] ASSOCIATE MANAGER AFFILIATE MARKETING Work Phone: [employer].; [employer]. 06-13-2015 13:46-0500 Body temperature 99.4 [degF] [employer] ASSOCIATE MANAGER AFFILIATE MARKETING Work Phone: [employer].; [employer]. Comment on above: Method: Tympanic 06-13-2015 13:46-0500 Body weight 92.53 kg Libby Walshy ASSOCIATE MANAGER AFFILIATE MARKETING Work Phone: [employer].; [employer]. 06-13-2015 13:46-0500 Diastolic blood pressure 90 mm[Hg] Libby Crow ASSOCIATE MANAGER AFFILIATE MARKETING Work Phone: [employer].; [employer]. Comment on above: Patient Position: Sitting; Cuff Location : Left Arm; Cuff Size: Large 06-13-2015 13:46-0500 Heart rate 88 /min Libby Crow ASSOCIATE MANAGER AFFILIATE MARKETING Work Phone: [employer].; [employer]. Comment on above: Pattern: Regular 06-13-2015 13:46-0500 Inhaled oxygen concentration 20 % Libby Crow ASSOCIATE MANAGER AFFILIATE MARKETING Work Phone: [employer].; [employer]. Comment on above: Room air 06-13-2015 13:46-0500 Inhaled oxygen concentration 21 % Libby Crow ASSOCIATE MANAGER AFFILIATE MARKETING Work Phone: [employer]; [employer]. Comment on above: Room air 06-13-2015 13:46-0500 SaO2% (BldA) [Mass fraction] 98 % Libby Crow ASSOCIATE MANAGER AFFILIATE MARKETING Work Phone: [employer]; [employer]. 06-13-2015 13:46-0500 Systolic blood pressure 143 mm[Hg] Libby Crow ASSOCIATE MANAGER AFFILIATE MARKETING Work Phone: [employer]; [employer]. Comment on above: Patient Position: Sitting; Cuff Location : Left Arm; Cuff Size: Large 06-04-2014 09:04-0500 Body height 177.8 cm Marko Medina MD Work Phone: [employer]; [employer]. 06-04-2014 09:04-0500 Body mass index (BMI) [Ratio] 29.13 kg/m2 Marko Medina MD Work Phone: [employer]; [employer]. 06-04-2014 09:04-0500 Body surface area Derived from formula 2.1 m2 Marko Medina MD Work Phone: [employer]; [employer] 06-04-2014 09:04-0500 Body temperature 98.2 [degF] Marko Medina MD Work Phone: [employer]; [employer] Comment on above: Method: Tympanic 06-04-2014 09:04-0500 Body weight 92.08 kg Marko Medina MD Work Phone: [employer]; [employer] 06-04-2014 09:04-0500 Diastolic blood pressure 82 mm[Hg] Marko Medina MD Work Phone: [employer]; [employer]. Comment on above: Patient Position: Sitting; Cuff Location : Left Arm; Cuff Size: Standard 06-04-2014 09:04-0500 Heart rate 74 /min Marko Medina MD Work Phone: [employer]; [employer]. Comment on above: Pattern: Regular 06-04-2014 09:04-0500 Inhaled oxygen concentration 20 % Marko Medina MD Work Phone: [employer]; [employer] Comment on above: Room air 06-04-2014 09:04-0500 Inhaled oxygen concentration 21 % Marko Medina MD Work Phone: [employer]; [employer] Comment on above: Room air 06-04-2014 09:04-0500 SaO2% (BldA) [Mass fraction] 97 % Marko Medina MD Work Phone: [employer]; [employer] 06-04-2014 09:04-0500 Systolic blood pressure 124 mm[Hg] Marko Medina MD Work Phone: [facility].; [employer]. Comment on above: Patient Position: Sitting; Cuff Location : Left Arm; Cuff Size: Standard 09-10-2013 14:45-0400 Body weight 86.18 kg Marko Medina MD Work Phone: [facility] [facility].; [employer]. 09-10-2013 14:45-0400 Diastolic blood pressure 89 mm[Hg] Marko Medina MD Work Phone: [employer].; [employer]. Comment on above: Patient Position: Sitting; Cuff Location : Left Arm; Cuff Size: Standard 09-10-2013 14:45-0400 Heart rate 84 /min Marko Medina MD Work Phone: [employer].; [employer]. Comment on above: Pattern: Regular 09-10-2013 14:45-0400 Systolic blood pressure 152 mm[Hg] Marko Medina MD Work Phone: [employer].; [employer]. Comment on above: Patient Position: Sitting; Cuff Location : Left Arm; Cuff Size: Standard 12-17-2012 11:24-0400 Body height 177.8 cm [facility] Work Phone: [employer].; [employer]. 12-17-2012 11:24-0400 Body mass index (BMI) [Ratio] 26.69 kg/m2 [facility] Work Phone: [employer].; [employer]. 12-17-2012 11:24-0400 Body surface area Derived from formula 2.02 m2 [facility] Work Phone: [employer].; [employer]. 12-17-2012 11:24-0400 Body temperature 98.5 [degF] [facility] Work Phone: [employer].; [employer]. Comment on above: Method: Tympanic 12-17-2012 11:24-0400 Body weight 84.37 kg Libby Maria LPN Work Phone: [employer].; [employer]. 12-17-2012 11:24-0400 Diastolic blood pressure 100 mm[Hg] Libby Maria LPN Work Phone: [employer]; [employer]. Comment on above: Patient Position: Sitting; Cuff Location : Right Arm; Cuff Size: Standard 12-17-2012 11:24-0400 Heart rate 90 /min Libby Maria LPN Work Phone: [employer]; [employer]. Comment on above: Pattern: Regular 12-17-2012 11:24-0400 Systolic blood pressure 153 mm[Hg] Libby Maria LPN Work Phone: [employer]; [employer]. Comment on above: Patient Position: Sitting; Cuff Location : Right Arm; Cuff Size: Standard 08-27-2012 11:41-0400 Body height 177.8 cm Libby Maria LPN Work Phone: [employer]; [employer]. 08-27-2012 11:41-0400 Body mass index (BMI) [Ratio] 26.54 kg/m2 Libby Maria LPN Work Phone: [employer].; [employer]. 08-27-2012 11:41-0400 Body surface area Derived from formula 2.02 m2 iLbby Walshy ASSOCIATE MANAGER AFFILIATE MARKETING Work Phone: [employer].; [employer]. 08-27-2012 11:41-0400 Body temperature 99.3 [degF] Libby Walshy ASSOCIATE MANAGER AFFILIATE MARKETING Work Phone: [employer].; [employer]. Comment on above: Method: Tympanic 08-27-2012 11:41-0400 Body weight 83.92 kg Libby Crow ASSOCIATE MANAGER AFFILIATE MARKETING Work Phone: [employer].; [employer]. 08-27-2012 11:41-0400 Diastolic blood pressure 91 mm[Hg] Libby Maria LPN Work Phone: [employer].; [employer]. Comment on above: Patient Position: Sitting; Cuff Location : Left Arm; Cuff Size: Large 08-27-2012 11:41-0400 Heart rate 85 /min Libby Maria LPN Work Phone: [employer].; [employer]. Comment on above: Pattern: Regular 08-27-2012 11:41-0400 Systolic blood pressure 141 mm[Hg] Libby Maria LPN Work Phone: [employer].; [employer]. Comment on above: Patient Position: Sitting; Cuff Location : Left Arm; Cuff Size: Large 07-30-2012 11:55-0500 Body height 177.8 cm Libby Maria LPN Work Phone: [employer].; [employer]. 07-30-2012 11:55-0500 Body mass index (BMI) [Ratio] 26.4 kg/m2 Libby Maria LPN Work Phone: [employer].; [employer]. 07-30-2012 11:55-0500 Body surface area Derived from formula 2.01 m2 Libby Maria LPN Work Phone: [employer].; [employer]. 07-30-2012 11:55-0500 Body weight 83.46 kg Libby Maria LPN Work Phone: [employer].; [employer]. 07-30-2012 11:55-0500 Diastolic blood pressure 87 mm[Hg] Libby Maria LPN Work Phone: [employer].; [employer]. Comment on above: Patient Position: Sitting; Cuff Location : Left Arm; Cuff Size: Standard 07-30-2012 11:55-0500 Heart rate 80 /min Libby Maria LPN Work Phone: [employer].; [employer]. Comment on above: Pattern: Regular 07-30-2012 11:55-0500 Systolic blood pressure 151 mm[Hg] Libby Maria LPN Work Phone: [place] [employer]. Comment on above: Patient Position: Sitting; Cuff Location : Left Arm; Cuff Size: Standard 11-15-2011 15:02-0400 Body temperature 101.3 [degF] Marko Medina MD Work Phone: [employer]; [employer]. Comment on above: Method: Tympanic 11-15-2011 15:02-0400 Body weight 83.46 kg Marko Medina MD Work Phone: [employer].; [employer]. 11-15-2011 15:02-0400 Diastolic blood pressure 94 mm[Hg] Marko Medina MD Work Phone: [employer].; [employer]. Comment on above: Patient Position: Sitting; Cuff Location : Left Arm; Cuff Size: Standard 11-15-2011 15:02-0400 Heart rate 124 /min Marko Medina MD Work Phone: [employer].; [employer]. Comment on above: Pattern: Regular 11-15-2011 15:02-0400 Systolic blood pressure 150 mm[Hg] Marko Medina MD Work Phone: [employer].; [employer]. Comment on above: Patient Position: Sitting; Cuff Location : Left Arm; Cuff Size: Standard 06-05-2011 14:04-0500 Body height 177.8 cm [email or web address].; [employer]. 06-05-2011 14:04-0500 Body mass index (BMI) [Ratio] 26.83 kg/m2 [email or web address] [facility], [employer]. 06-05-2011 14:04-0500 Body surface area Derived from formula 2.03 m2 Jovita Yang LPN [facility].; [email or web address] 06-05-2011 14:04-0500 Body temperature 96.2 [degF] Jovita Yang ASSOCIATE MANAGER AFFILIATE MARKETING [facility] [employer] Comment on above: Method: Tympanic 06-05-2011 14:04-0500 Body weight 84.82 kg Jovita Yang LPN [facility], [employer]. 06-05-2011 14:04-0500 Diastolic blood pressure 85 mm[Hg] Jovita Yang LPN [facility] [employer], [employer]. Comment on above: Patient Position: Sitting; Cuff Location : Left Arm; Cuff Size: Large 06-05-2011 14:04-0500 Heart rate 78 /min Jovita Yang ASSOCIATE MANAGER AFFILIATE MARKETING [facility].; [employer], [employer]. Comment on above: Pattern: Regular 06-05-2011 14:04-0500 Systolic blood pressure 130 mm[Hg] Jovita Yang ASSOCIATE MANAGER AFFILIATE MARKETING [facility] [employer] Comment on above: Patient Position: Sitting; Cuff Location : Left Arm; Cuff Size: Large 11-13-2010 09:41-0400 Body temperature 97.7 [degF] Libby Walshy ASSOCIATE MANAGER AFFILIATE MARKETING Work Phone: [facility], [employer].; [employer]. Comment on above: Method: Tympanic 11-13-2010 09:41-0400 Body weight 86.64 kg Libby Crow ASSOCIATE MANAGER AFFILIATE MARKETING Work Phone: [email or web address], [employer].; [employer], [employer]. 11-13-2010 09:41-0400 Diastolic blood pressure 83 mm[Hg] Libby Crow ASSOCIATE MANAGER AFFILIATE MARKETING Work Phone: [facility], [employer].; [employer], [employer]. Comment on above: Patient Position: Sitting; Cuff Location : Left Arm; Cuff Size: Standard 11-13-2010 09:41-0400 Heart rate 76 /min Libby Maria LPN Work Phone: [employer]; [employer]. Comment on above: Pattern: Regular 11-13-2010 09:41-0400 Systolic blood pressure 137 mm[Hg] Libby Maria LPN Work Phone: [employer]; [employer]. Comment on above: Patient Position: Sitting; Cuff Location : Left Arm; Cuff Size: Standard Encounters Encounter Date Encounter Type Care Provider Facility Start: 10-05-2024 End: 10-05-2024 Orders Marko Medina MD Work Phone: [email or web address] Start: 10-02-2024 End: 10-02-2024 Office outpatient new 30 minutes Marko Medina MD Work Phone: [email or web address] Start: 11-19-2022 End: 11-19-2022 Emergency department patient visit MARKO MEDINA [facility] Start: 06-17-2020 End: 06-17-2020 Patient encounter procedure Marko Medina MD Work Phone: [email or web address] Start: 10-11-2016 End: 10-11-2016 Office outpatient visit 15 minutes Marko Medina MD Work Phone: [facility] Start: 08-20-2016 End: 08-20-2016 Office outpatient visit 15 minutes Marko Medina MD Work Phone: [facility] Start: 03-17-2016 End: 03-20-2016 Patient encounter procedure Marko Medina MD Work Phone: [email or web address] Start: 06-13-2015 End: 06-14-2015 Patient encounter procedure Marko Medina MD Work Phone: [email or web address] Start: 06-21-2014 End: 06-21-2014 Medication Marko Medina MD Work Phone: [email or web address] Start: 06-04-2014 End: 06-04-2014 Patient encounter procedure Marko Medina MD Work Phone: [email or web address] Start: 09-10-2013 End: 09-10-2013 Patient encounter procedure Marko Medina MD Work Phone: [facility] Start: 12-22-2012 End: 12-29-2012 Orders Marko Medina MD Work Phone: [facility]. Start: 12-19-2012 End: 12-19-2012 Patient encounter procedure Marko Medina MD Work Phone: [facility] Start: 12-17-2012 End: 12-17-2012 Patient encounter procedure Marko Medina MD Work Phone: [facility] Start: 08-27-2012 End: 08-27-2012 Patient encounter procedure Marko Medina MD Work Phone: [facility] Start: 08-08-2012 End: 08-08-2012 Medication Marko Medina MD Work Phone: [facility] Start: 07-30-2012 End: 07-30-2012 Patient encounter procedure Marko Medina MD Work Phone: [facility] Start: 11-15-2011 End: 11-15-2011 Patient encounter procedure Marko Medina MD Work Phone: [email or web address] Start: 06-05-2011 End: 06-05-2011 Patient encounter procedure Marko Medina MD Work Phone: [email or web address] Start: 11-13-2010 End: 11-23-2010 Patient encounter procedure Marko Medina MD Work Phone: [facility] Procedures Date Procedure Procedure Detail Performing Clinician Start: 12-22-2012 End: 12-24-2012 Ct limited/localized follow up study Marko Medina MD Work Phone: Start: 12-19-2012 End: 12-22-2012 Ct limited/localized follow up study Marko Medina MD Work Phone: Amputation and disarticulation of finger Arelis Chapin RN Comment on above: Right 5th finger Craniotomy Arelis turner RN Comment on above: at age 12, following head injury Lithotripsy Arelis turner RN Plan of Treatment Date Care Activity Detail Author Start: 10-05-2024 Ndl emg 1 xtr w/wo r elated paraspinal areas [email or web address]; [facility]. Start: 10-02-2024 Assay of folic acid serum DEIDRE TE (73632) Start: 02-Oct-2024 11:00-04:00 Request [facility]; [facility] Start: 10-02-2024 Cyanocobalamin vitamin b-12 TAMIN B-12 SERUM (95468) Start: 02-Oct-2024 11:00-04:00 Request [email or web address]; [facility]. Start: 10-02-2024 Assay of prostate sp ecific antigen total PSA TOTAL (PROSTATE SPECIFIC ANTIGEN) (24460) Start: 02-Oct-2024 10:59-04:00 Request [email or web address]; [facility]. Start: 10-02-2024 Assay of ferritin IRON DEFICIE NCY PROFILE (69629,[id number],[id number]) Start: 02-Oct-2024 10:59-04:00 Request [facility]. Start: 10-02-2024 Comprehensive metabo lic panel CMP w/ GFR* (32788) Start: 02-Oct-2024 10:59-04:00 Request [email or web address]; [facility]. Start: 10-02-2024 Blood count complete auto&auto difrntl wbc CBC, PLATELETS & AUT DIFF (F) (74395) Start: 02-Oct-2024 10:59-04:00 [facility]; [facility] Payers Date Payer Category Payer Unknown [id number] Unknown 190 Social History Date Type Detail Facility Spouse Spouse Andreea Santos [employer]. Tobacco Use: Tobacco Use: ; Never smoker. [facility]. Male Andreea Santos [employer]. Work Phone: Never smoked tobacco [facility]. Work Phone: Clinical Note 11-24-2022 Note Date & Type Note Facility 11-24-2022 Note . MICRO - Microbiology PROCEDURE: Blood Culture (bacterial) [*1] SOURCE: Blood BODY SITE: COLLECTED DATE/TIME: 11/19/2022 04:00 EDT RECEIVED DATE/TIME: 11/19/2022 15:58 EDT START DATE/TIME: 11/19/2022 15:58 EDT FREE TEXT SOURCE: FINAL REPORTS Final Report [] Verified Date/Time/Personnel: 11/24/2022 15:59 EDT Blood Culture: No Growth at 5 days. PRELIMINARY REPORTS Preliminary Report [] Verified Date/Time/Personnel: 11/19/2022 16:59 EDT Culture has been received in lab and is no growth to date. Routine cultures are held for 5 days. Performing Locations *1: This test was performed at: [address], [address] [place] [address] ([place]) Clinical Note 11-24-2022 Note Date & Type Note Facility 11-24-2022 Note . MICRO - Microbiology PROCEDURE: Blood Culture (bacterial) [*1] SOURCE: Blood BODY SITE: COLLECTED DATE/TIME: 11/19/2022 04:05 EDT RECEIVED DATE/TIME: 11/19/2022 15:58 EDT START DATE/TIME: 11/19/2022 15:58 EDT FREE TEXT SOURCE: FINAL REPORTS Final Report [] Verified Date/Time/Personnel: 11/24/2022 15:59 EDT Blood Culture: No Growth at 5 days. PRELIMINARY REPORTS Preliminary Report [] Verified Date/Time/Personnel: 11/19/2022 16:59 EDT Culture has been received in lab and is no growth to date. Routine cultures are held for 5 days. Performing Locations *1: This test was performed at: [facility], [address] [place] [address], [facility] , [facility] ([place]) Summary Purpose Family History No Family History Records FoundNo Family History Records FoundNo Family History Records Found Advance Directives No Advanced Directives Records FoundNo Advanced Directives Records FoundNo Advanced Directives Records Found Additional Source Comments (unrecognized sect ion and content) No Status Records FoundNo Status Records FoundNo Status Records Found INFORMATION SOURCE (unrecogn ized section and content) DATE CREATED AUTHOR 11/24/2022 [facility] ([place]) DATE CREATED AUTHOR AUTHOR'S ORGANIZ ATION 11/26/2022 [facility] DATE CREATED AUTHOR AUTHOR'S ORGANIZ ATION 10/08/2024 [facility] FOR RECORDS PERTAINING TO PATIENTS WHO ARE OR HAVE BEEN ENROLLED IN A CHEMICAL DEPENDENCY/SUBSTANCEABUSE PROGRAM, SOME INFORMATION MAY BE OMITTED. This clinical summary was aggregated from multiple sources. Caution should be exercised in using it in the provision of clinical care. This summary normalizes information from multiple sources, and as a consequence, information in this document may materially change the coding, format and clinical context of patient data. In addition, data may be omitted in some cases. CLINICAL DECISIONS SHOULD BE BASED ON THE PRIMARY CLINICAL RECORDS. [facility]. provides no warranty or guarantee of the accuracy or completeness of information in this document.
--- NOTE | 2024-11-04 12:46 | NEURO ---
NCS and/or EMG Patient Report Ordering Doctor: Cullen Pressley DATE OF SERVICE: 11/04/24 Jerzy presents for electrodiagnostic testing of the right arm and leg. He reports heaviness weakness and tingling which is intermittent in nature. Electrodiagnostic findings: Right median motor nerve demonstrates normal distal latency, amplitude and conduction velocity. Right ulnar motor response within normal limits, including conduction across the elbow. Normal right peroneal and right tibial motor responses. F?waves are normal. H?reflex is borderline prolonged bilaterally. Sensory responses are within normal limits. Needle EMG testing was performed the right upper and right lower limb. All muscles tested showed no evidence of denervation with normal motor unit action potentials. Electrodiagnostic impression: This a normal electrodiagnostic study of the right upper and right lower limb. There is no electrodiagnostic evidence for peripheral neuropathy, cervical radiculopathy or lumbosacral radiculopathy. There is no evidence for brachial plexopathy or myopathy. Multi Select Codes Neurology Neurology Interp Codes: 08308-86 Musc test done w/n test comp (interp) (2) and 05019-04 Nrv cndj test 11-12 studies (interp)
== END | disposition home or self-care (01) ==
PROVIDERS: PCP Physician Assistant; Referring Provider Physician Assistant; Visit Provider Physician Assistant
DX: R20.2 Paresthesia of skin (principal)
CPT/HCPCS: 95886; 95912

== ENCOUNTER → 2025-03-09 | Outpatient (CLI) | payer OTHER, SELFPAY ==
[2025-03-09 15:33] LABS: CRP 4.29 mg/L (0.0-3.0)
[2025-03-11 15:09] LABS: ANTINUCLEAR ANTIBODIES DIRECT Negative (Negative)
[2025-03-19 14:08] LABS: Albumin 4.3 g/dL (2.9-4.4); Arsenic 7245 1 ug/L (0-9); Gamma Globulin 1.4 g/dL (0.4-1.8); Immunoglobulin A 197 mg/dL (90-386); Immunoglobulin G 1007 mg/dL (603-1613); Immunoglobulin M 143 mg/dL (20-172); Lead, Blood < 1.0 ug/dL (0.0-3.4); Mercury, Blood 85324 < 1.0 ug/L (0.0-14.9); PROEL- TOTAL PROTEIN 7.5 g/dL (6.0-8.5)
== END | disposition home or self-care (01) ==
LOC: MTLAB 11:46
PROVIDERS: PCP Physician Assistant; Referring Provider Psychiatry & Neurology Neurology; Visit Provider Psychiatry & Neurology Neurology
DX: R20.2 Paresthesia of skin (principal)
CPT/HCPCS: 36415; 82175; 82784; 83655; 83825; 83883; 84165; 85652; 86038; 86140; 86225; 86334